=== PATIENT | female | born 1975 | race Caucasian/White ===

== ENCOUNTER 2018-07-03 16:25 | Emergency (ER) | payer SELFPAY ==
[2018-07-03 16:38] VITALS: O2SAT 99
--- NOTE | 2018-07-03 16:54 | ED.PDOC ---
History of Present Illness - General Chief Complaint: Back Pain or Injury Stated Complaint: Low back discomfort, radiates around to flank Time Seen by Provider: 07/03/18 16:48 Source: patient Exam Limitations: no limitations - History of Present Illness Initial Comments: Pop Storm 42 y/o female stated that she had sharp constant bilateral flank for the last 3 days and had one episode of N/V 3 days ago;able to eat 3 meals a day no N/V/D,no constipation ,no dysuria ,no blood in urine ,no fever or chills. Timing/Duration: days - 3, constant Quality/Severity: moderate, sharpness Back Pain Location: lumbar spine Back Pain Radiation: other - both sides of abdomen Method of Injury/Prior Injury: other - NO INJURY Improving Factors: nothing Worsening Factors: nothing Associated Symptoms: other - see hpi Allergies/Adverse Reactions: Allergies Codeine Allergy (Verified 07/03/18 16:38) Other Causes swelling to face and throat Lidocaine Allergy (Verified 07/03/18 16:38) Other Seizure Home Medications: Ambulatory Orders Albuterol Inhaler [Ventolin Hfa Inhaler] 2 puff INH Q4H PRN 07/03/18 Baclofen 20 mg PO BID PRN #10 tab 07/03/18 Review of Systems - Review of Systems Constitutional: States: no symptoms reported EENTM: States: no symptoms reported Respiratory: States: no symptoms reported Cardiology: States: no symptoms reported Gastrointestinal/Abdominal: States: see HPI, other - flank pain Genitourinary: States: no symptoms reported Musculoskeletal: States: no symptoms reported Skin: States: no symptoms reported Neurological: States: no symptoms reported Past Medical History (General) - Patient Medical History Hx Stroke: No Hx Asthma: Yes Hx Congestive Heart Failure: No Hx Diabetes: No Hx Cancer: Yes - carcinoma in situ-CERVIX Surgical History: other - BTL;LEEP - Vaccination History Hx Influenza Vaccination: No Hx Pneumococcal Vaccination: No - Social History Hx Tobacco Use: Yes Hx Alcohol Use: No Hx Substance Use: No Hx Physical Abuse: No Hx Emotional Abuse: No - Female History Patient is a Female of Child Bearing Age (10 -59 yrs old): Yes Hx Last Menstrual Period: 06/16/18 Patient : No Family Medical History - Family History Mother Living Status: Still Living Hx Family Cancer: Yes - Mom - cervical Physical Exam - Physical Exam General Appearance: Alert, Comfortable, No apparent distress Eyes, Ears, Nose, Throat Exam: PERRL/EOMI, normal ENT inspection, pharynx normal, other - sveral teeth missing Neck Exam: non-tender, normal alignment, normal inspection Cardiovascular/Respiratory: regular rate, rhythm, no M/R/G, normal peripheral pulses, no JVD, normal breath sounds Peripheral Pulses: radial,right: 2+, radial,left: 2+ Gastrointestinal/Abdominal: soft, tenderness - right side abdomen;no peritoneal signs;no rebound tenderness Back Exam: normal inspection, no vertebral tenderness, CVA tenderness (R) Extremity Exam: non-tender, no pedal edema Neurologic: alert, oriented x 3 Skin Exam: normal color, warm/dry Progress - Progress Progress: 07/03/18 18:30 Vital Signs - 8 hr 07/03/18 07/03/18 16:33 17:32 Temperature 98.7 F Pulse Rate [ 100 H 83 Left Radial] Respiratory 20 20 Rate Blood Pressure 151/89 137/90 [Left Arm] O2 Sat by Pulse 99 99 Oximetry - Results/Orders Results/Orders: Discuss all test result with patient no acute abnormalities were noted 07/03/18 17:34 Hold Metformin x 48Hrs [id number] Laboratory Results - last 24 hr 07/03/18 07/03/18 07/03/18 16:43 16:43 16:43 WBC RBC Hgb Hct MCV MCH MCHC RDW Plt Count MPV Absolute Neuts (auto) Absolute Lymphs (auto) Absolute Monos (auto) Absolute Eos (auto) Absolute Basos (auto) Neutrophils % Lymphocytes % Monocytes % Eosinophils % Basophils % PT INR PTT (SP) Sodium Potassium Chloride Carbon Dioxide Anion Gap BUN Creatinine BUN/Creatinine Ratio Random Glucose Serum Osmolality Calcium Magnesium Total Bilirubin Direct Bilirubin Indirect Bilirubin AST ALT Alkaline Phosphatase Creatine Kinase CK-MB (CK-2) CK-MB (CK-2) % Troponin I Serum Total Protein Albumin Urine Color Yellow Urine Appearance Clear Urine pH 6.5 Ur Specific [place] <= 1.005 Urine Protein Negative Urine Glucose (UA) Negative Urine Ketones Negative Urine Blood Negative Urine Nitrite Negative Urine Bilirubin Negative Urine Urobilinogen 0.2 Ur Leukocyte Esterase Trace H Urine RBC 0 Urine WBC 0-1 Ur Epithelial Cells 1-3 Urine Bacteria Rare Urine HCG, Qual Negative Urine Opiates Screen Negative Urine Barbiturates Negative Ur Phencyclidine Scrn Negative U Amphetamin/Meth Scrn Negative U Benzodiazepines Scrn Negative U Cocaine Metab Screen Negative U Cannabinoids Screen Positive H 07/03/18 17:17 WBC 12.8 H RBC 4.76 Hgb 15.0 Hct 44.2 MCV 92.8 MCH 31.6 H MCHC 34.1 RDW 13.4 Plt Count 229 MPV 9.1 Absolute Neuts (auto) 8.70 H Absolute Lymphs (auto) 3.10 Absolute Monos (auto) 0.70 Absolute Eos (auto) 0.20 Absolute Basos (auto) 0.10 Neutrophils % 68.0 Lymphocytes % 24.5 Monocytes % 5.7 Eosinophils % 1.2 Basophils % 0.6 PT 10.4 INR 1.04 PTT (SP) 26.3 Sodium 139 Potassium 3.3 L Chloride 104 Carbon Dioxide 23 Anion Gap 15.3 BUN 6 L Creatinine 0.69 BUN/Creatinine Ratio 8.7 L Random Glucose 123 H Serum Osmolality 276.5 Calcium 9.2 Magnesium 2.1 Total Bilirubin 0.6 Direct Bilirubin < 0.1 Indirect Bilirubin 0.5 AST 17 ALT 23 Alkaline Phosphatase 42 Creatine Kinase 172 H CK-MB (CK-2) 1.8 CK-MB (CK-2) % Not Reportable Troponin I < 0.02 Serum Total Protein 8.0 Albumin 4.3 Urine Color Urine Appearance Urine pH Ur Specific [place] Urine Protein Urine Glucose (UA) Urine Ketones Urine Blood Urine Nitrite Urine Bilirubin Urine Urobilinogen Ur Leukocyte Esterase Urine RBC Urine WBC Ur Epithelial Cells Urine Bacteria Urine HCG, Qual Urine Opiates Screen Urine Barbiturates Ur Phencyclidine Scrn U Amphetamin/Meth Scrn U Benzodiazepines Scrn U Cocaine Metab Screen U Cannabinoids Screen - EKG/XRAY/CT CT Ordered: Yes - abd/P-no acute abnormalities Departure - Departure Clinical Impression: Flank pain, acute Time of Disposition: 18:32 Disposition: Discharge to Home or Self Care Departure Forms: ED Discharge - Pt. Copy, Patient Portal Self Enrollment Instructions: DI for Low Back Pain, Muscle Spasms (DC) Referrals: EMMA GUNN [Primary Care Provider] - 1-2 Weeks Prescriptions: Baclofen 20 mg PO BID PRN #10 tab PRN Reason: Muscle Spasms Home Medications: Ambulatory Orders Albuterol Inhaler [Ventolin Hfa Inhaler] 2 puff INH Q4H PRN 07/03/18 Baclofen 20 mg PO BID PRN #10 tab 07/03/18 Additional Instructions: Return to ER as needed;Continue with home medications;Follow up with primary Md 05 Jul 2018 for recheck as needed
[2018-07-03] MEDS ORDERED: LACTATED RINGERS 1,000 ML IVS ONE (16:55)
[2018-07-03] MEDS ORDERED: PROMETHAZINE HCL INJ 25 MG/ML VIAL IM ONE (16:55)
[2018-07-03] MEDS ORDERED: MORPHINE SULFATE INJ 10 MG/ML VIAL IV ONE (16:55)
--- NOTE | 2018-07-03 18:21 | CT ---
EXAM: Abdomen/Pelvis w/Contrast CLINICAL INDICATION: Abdominal pain. COMPARISON: There is no previous study for comparison. TECHNIQUE: The CT scan was done using contiguous axial 5 mm postcontrast sections through the abdomen and pelvis including IV contrast. This exam was performed according to our departmental dose-optimization program, which includes automated exposure control, adjustment of the mA and/or kV according to patient size and/or use of iterative reconstruction technique. FINDINGS: The visualized lung bases are clear. The top of the liver is not included in the field of view and not evaluated. The visualized portion of the liver is unremarkable. The kidneys, adrenal glands, spleen, and pancreas as well as the gallbladder are unremarkable. Evaluation of the upper abdominal structures is limited by respiratory motion artifacts. The aorta is normal in caliber. The appendix is normal. No dilated loops of small bowel are seen. There is no free air, free fluid, or abscess. The urinary bladder appears distended. IMPRESSION: 1. No evidence of an acute intra-abdominal process. 2. Distended urinary bladder. Electronically signed by: Mathew Moreland MD 07/03/2018 6:18 PM [facility]
[2018-07-03] MEDS ORDERED: KETOROLAC TROMETHAMINE INJ 30 MG/ML VIAL IV ONE (18:31)
[2018-07-03] MEDS ORDERED: ORPHENADRINE CITRATE 30 MG/ML AMP IV ONE (18:31)
[2018-07-03] MEDS ORDERED: ORPHENADRINE CITRATE 30 MG/ML AMP IM ONE (18:43)
[2018-07-03] MEDS ORDERED: KETOROLAC TROMETHAMINE INJ 30 MG/ML VIAL IM ONE (18:43)
[2018-07-03 18:54] VITALS: BP 134/93; TEMP 98.9
== END 2018-07-03 18:54 | disposition home or self-care (01) ==
LOC: ER 16:25
DX: R10.9 Unspecified abdominal pain (principal); R11.2 Nausea with vomiting, unspecified; J45.909 Unspecified asthma, uncomplicated; Z85.41 Personal history of malignant neoplasm of cervix uteri; Z87.891 Personal history of nicotine dependence; Z79.899 Other long term (current) drug therapy; Z88.8 Allergy status to other drugs, medicaments and biological substances; Z88.5 Allergy status to narcotic agent
CPT/HCPCS: 36415; 74177; 80048; 80076; 80307; 81001; 81025; 82550; 82553; 84484; 85025; 85610; 85730; J1885; J2270; J2360; J2550; J7120

== ENCOUNTER → 2020-01-20 | Outpatient (CLI) | payer SELFPAY ==
--- NOTE | 2020-01-24 07:08 | CT ---
EXAM DESCRIPTION: Abdomen/Pelvis w/Contrast CLINICAL HISTORY: INGUINAL LYMPHADENOPATHY COMPARISON: July 03, 2018 TECHNIQUE: Postcontrast CT images of the abdomen and pelvis are obtained using standard imaging protocol. This exam was performed according to our departmental dose-optimization program, which includes automated exposure control, adjustment of the mA and/or kV according to patient size and/or use of iterative reconstruction technique . FINDINGS: Visualized lung bases are unremarkable. Liver, spleen, pancreas, adrenal glands, gallbladder, kidneys, ureters, urinary bladder unremarkable. Mild vascular calcifications and noncalcified plaque are seen. The uterus and ovaries are unremarkable. The appendix is retrocecal and normal. Stomach poorly distended but unremarkable. No small bowel obstruction or bowel wall thickening. No pathologically enlarged abdominal mesenteric lymphadenopathy. No retroperitoneal lymphadenopathy in the abdomen. Borderline enlarged right external iliac chain lymph node measures maximum 8 mm short axis. Enlarged soft tissue attenuation mass in the right groin with lobulated appearance measuring 3.5 x 2.5 cm is seen with surrounding fat stranding. No enlarged left inguinal or groin lymphadenopathy. Osseous structures show no aggressive bony lesions. Mild spondylitic changes of the spine are seen. IMPRESSION: Enlarged mass in the right groin with mild surrounding fat stranding likely represents enlarged, reactive lymph node although neoplastic process cannot be determined on CT imaging. Correlate with physical exam findings. Consider tissue sampling or follow-up imaging in 4-6 weeks with ultrasound if not improvement in physical exam findings if this is felt to be reactive. Electronically signed by: Osvaldo Ware MD 01/24/2020 7:06 AM CDT
== END ==
LOC: CT 10:31
PROVIDERS: ATTEND Nurse Practitioner Family
DX: Z01.812 Encounter for preprocedural laboratory examination (principal); R19.09 Other intra-abdominal and pelvic swelling, mass and lump

== ENCOUNTER 2020-02-02 05:23 | Day surgery (SDC) | payer SELFPAY ==
--- NOTE | 2020-01-31 15:58 | RAD ---
EXAM DESCRIPTION: Chest x-ray,2 Views CLINICAL HISTORY: surgery clearance COMPARISON: Previous chest x-ray June 01, 2012 TECHNIQUE: PA/lateral FINDINGS: There is no acute appearing cardiac or pulmonary abnormality. Heart size is normal with normal pulmonary vascularity. No pleural effusion or pneumothorax. Lungs are clear with no consolidating infiltrate. Lateral view shows intact sternum and T-spine. IMPRESSION: No acute process is identified in the chest. Electronically signed by: Devonte Amezcua MD 01/31/2020 3:56 PM CDT
[2020-02-02] MEDS ORDERED: LIDOCAINE 1% 10 ML VIAL INJ ONE (07:00)
[2020-02-02] MEDS ORDERED: PROPOFOL 200 MG/20 ML VIAL IV ONE (07:00)
[2020-02-02] MEDS ORDERED: DEXAMETHASONE INJ 10 MG/ML VIAL ONE (07:00)
[2020-02-02] MEDS ORDERED: MAGNESIUM SULFATE INJ 1 GM/2 ML VIAL ONE (07:00)
[2020-02-02] MEDS ORDERED: ceFAZolin SODIUM 1 GM VIAL ONE (07:00)
[2020-02-02] MEDS ORDERED: SODIUM CHLORIDE 0.9% 50 ML VIAL ONE (07:00)
[2020-02-02] MEDS: LACTATED RINGERS 1,000 ML ONE ×2 (07:57→10:30)
[2020-02-02] MEDS ORDERED: LEVALBUTEROL NEBS 1.25 MG/3 ML VIAL NEB ONE (08:09)
[2020-02-02] MEDS ORDERED: BUPIVACAINE 0.5% W/EPI 30 ML VIAL INJ ONE (08:12)
[2020-02-02] MEDS ORDERED: fentaNYL CITRATE INJ 50 MCG/ML AMP ONE (09:12)
[2020-02-02] MEDS ORDERED: KETAMINE HCL 100 MG/ML VIAL ONE (09:12)
[2020-02-02] MEDS ORDERED: MIDAZOLAM INJ 2 MG/2 ML VIAL ONE (09:12)
[2020-02-02] MEDS ORDERED: HYDROmorphone HCL INJ 2 MG/ML VIAL ONE (10:14)
[2020-02-02] MEDS ORDERED: SODIUM CHLORIDE 0.9% (FLUSH) 10 ML SYG ONE (10:42)
[2020-02-02] MEDS: HYDROmorphone HCL INJ 2 MG/ML VIAL ONE ×5 (10:43→11:23)
--- NOTE | 2020-02-02 10:43 | OP ---
DATE OF PROCEDURE: 02/02/20 PREOPERATIVE DIAGNOSIS: 1. Abnormal external hemorrhoid/mass. 2. Right inguinal lymphadenopathy. POSTOPERATIVE DIAGNOSIS: 1. Anal mass. 2. Right inguinal lymphadenopathy. PROCEDURE: 1. Incisional biopsy of right inguinal lymph node. 2. Incisional biopsy of anal mass/cancer. SURGEON: Anton Bravo MD ANESTHESIA: General and local. FINDINGS: The inguinal node was approximately 3 to 3.5 cm. In taking the biopsy, the inside had white, purulent appearing material, likely from necrotic node with no gross infection. The anal mass showed ulcerative external hemorrhoid appearing tissue, but there was a mass, probably 5 cm, underlying in the perianal area involving the sphincter and up into the distal rectum. Incisional biopsies were performed. Good hemostasis was obtained. INDICATION: As stated. PROCEDURE: General anesthesia was induced. She as prepped and draped in sterile fashion. The clean inguinal site was taken first. Inguinal incision was taken over the palpable mass. Subcutaneous tissues were taken down. We isolated the node. It was very fixed and stuck. I did not want to excise it completely given this. There was some oozing. We did an incisional biopsy of it and got into white purulence. I explored a little further and the inside of the node which was about 4 cm, and the inside was cavitated, filled with fluid, likely necrotic, although not a lot of necrotic tissue, it was just all the fluid. This was aspirated out. Additional tissue was taken to try to get an adequate sample. The wound was then closed with 3 layers of absorbable suture. She was then placed in lithotomy. The lesion in the anus was coming out at about 6 to 7 o'clock. It appeared like an ulcerated external hemorrhoid, but on palpation, the mass went deeper. I examined it to see if there was an abscess, but it was not. This area was solid. We took samples of what looked like visible tumor and also made a cut to get a little bit deeper so we had a good sample. The external skin tag appearing area was now just floppy, so that was removed. There was quite a bit of oozing, but this was controlled with cautery. A lot of local anesthesia was placed in the area. It was then packed and dressing applied. She was then awakened and taken to Recovery to be discharged. #[id number] cc: Eulogio Lou MD MTDD
[2020-02-02 11:05] VITALS: O2SAT 98
[2020-02-02] MEDS ORDERED: HYDROcodone 5MG/APAP 325MG 1 EA TAB ONE (11:49)
[2020-02-02] MEDS ORDERED: HYDROcodone 5MG/APAP 325MG 1 EA TAB PO ONE (11:50)
[2020-02-02 12:45] VITALS: BP 141/96; TEMP 97.5
== END 2020-02-02 12:34 | disposition home or self-care (01) ==
LOC: AMB 05:23
PROVIDERS: ATTEND Surgery
DX: C21.0 Malignant neoplasm of anus, unspecified (principal); C77.4 Secondary and unspecified malignant neoplasm of inguinal and lower limb lymph nodes; K64.4 Residual hemorrhoidal skin tags; E11.9 Type 2 diabetes mellitus without complications; J45.909 Unspecified asthma, uncomplicated; F32.9 Major depressive disorder, single episode, unspecified; E78.00 Pure hypercholesterolemia, unspecified; Z88.3 Allergy status to other anti-infective agents; Z88.5 Allergy status to narcotic agent
CPT/HCPCS: 00902; 36415; 38531; 46220; 46999; 71046; 80048; 85025; 87070; 87205; A4216; J0690; J1100; J1170; J2250; J3010; J3475; J3490; J7120; J7614

== ENCOUNTER 2020-03-10 15:45 | Emergency (ER) | payer SELFPAY ==
[2020-03-10] MEDS ORDERED: ONDANSETRON INJ 4 MG/2 ML VIAL IV ONE (16:17)
[2020-03-10] MEDS ORDERED: SODIUM CHLORIDE 0.9% 1000ML 1,000 ML IVS PRN (16:17)
[2020-03-10] MEDS ORDERED: SODIUM CHLORIDE 0.9% (FLUSH) 10 ML SYG IV PRN (16:17)
[2020-03-10] MEDS ORDERED: MORPHINE SULFATE INJ 10 MG/ML VIAL IV ONE (16:18)
--- NOTE | 2020-03-10 16:56 | ED.PDOC ---
History of Present Illness - General Chief Complaint: General Stated Complaint: Nausea/vomiting Time Seen by Provider: 03/10/20 16:13 Source: patient, RN notes reviewed, Vital Signs reviewed, old records - History of Present Illness Initial Comments: This is a 44-year-old female with history of rectal cancer presenting to the emergency department with nausea and vomiting that began yesterday after she underwent a radiation treatment and started chemotherapy with fluorouracil. She took p.o. Phenergan earlier today, but was unable to keep it down. Dr. Mcginnis is her oncologist in [place]. She reports some diarrhea with mild bloody stool, but this has been a longstanding problem and is unchanged. She denies any fevers, cough, shortness of breath, or severe abdominal pain. She does report a mild headache at this time. No weakness/numbness/tingling. She called Dr. Mcginnis and notified him of her symptoms, and was told to come into the emergency department for IV fluids, antiemetics and work-up. Allergies/Adverse Reactions: Allergies Codeine Allergy (Verified 07/03/18 16:38) Other Causes swelling to face and throat Home Medications: Ambulatory Orders Calcium Carbonate-Mag Hydrox [Rolaids 550-110 mg] 1 chw PO PRN PRN 01/31/20 Naproxen Sodium [Aleve] 220 mg PO BID PRN 01/31/20 Ondansetron Odt (ER Disp) [Zofran ODT (ER DISP)] 8 mg PO ONCE #2 tab 03/10/20 Ondansetron Odt (ER Disp) [Zofran ODT (ER DISP)] 8 mg PO ONCE #4 tab 03/10/20 Ondansetron Odt (ER Disp) [Zofran ODT (ER DISP)] 32 mg PO ONCE #4 tab 03/10/20 Ondansetron Odt (ER Disp) [Zofran ODT (ER DISP)] 32 mg PO ONCE 1 Days tab 03/10/20 Ondansetron Odt [Zofran ODT] 8 mg PO Q8HR PRN #20 tab 03/10/20 Review of Systems - Review of Systems Constitutional: Denies: chills, fever EENTM: Denies: ear pain, nose congestion, throat pain Respiratory: Denies: cough, short of breath, wheezing Cardiology: Denies: chest pain, edema, syncope Gastrointestinal/Abdominal: States: diarrhea, nausea, vomiting. Denies: abdominal pain Genitourinary: Denies: dysuria, frequency, hematuria, pain Musculoskeletal: Denies: back pain, joint pain, muscle pain, neck pain Skin: Denies: lesions, rash Neurological: States: headache. Denies: numbness, paresthesia, tingling, weakness Endocrine: States: no symptoms reported Hematologic/Lymphatic: States: no symptoms reported Past Medical History (General) - Patient Medical History Hx Stroke: No Hx Asthma: Yes Hx Congestive Heart Failure: No Hx Diabetes: No Hx Cancer: Yes - carcinoma in situ-CERVIX Hx MRSA: No - Vaccination History Hx Influenza Vaccination: No Hx Pneumococcal Vaccination: No - Social History Hx Tobacco Use: Yes Hx Alcohol Use: No Hx Substance Use: No Hx Physical Abuse: No Hx Emotional Abuse: No - Female History Hx Last Menstrual Period: 06/16/18 Patient : No Family Medical History - Family History Mother Living Status: Still Living Hx Family Cancer: Yes - Mom - cervical Physical Exam - Physical Exam General Appearance: Alert, Ill Appearing Ears, Nose, Throat: hearing grossly normal, normal ENT inspection, normal pharynx, other - Poor dentition Neck: non-tender, supple Respiratory: chest non-tender, lungs clear, normal breath sounds, no respiratory distress Cardiovascular/Chest: normal peripheral pulses, regular rate, rhythm, no edema, no gallop, no JVD Gastrointestinal/Abdominal: non tender, soft, no organomegaly Back Exam: normal inspection, no CVA tenderness, no vertebral tenderness Extremity: non-tender, normal inspection, no pedal edema, no calf tenderness, other - Good distal pulses, There is a PICC line in the right upper extremity, site clean and dry Neurologic: no motor/sensory deficits, alert, normal mood/affect, oriented x 3 Skin Exam: normal color, warm/dry Progress - Progress Progress: 03/10/20 18:10 Rechecked. Nausea improving, but not completely resolved. Will order Phenergan. Headache resolved. Patient states she is feeling much better and would like to go home if possible. I discussed plan to review labs with oncology prior to discharge. 03/10/20 18:[address] Alegria, oncologist on-call for Dr. Mcginnis. Reviewed labs, vital signs. Agrees with plan for discharge home with antiemetics. Recommended dexamethasone 10 mg IV prior to discharge. Recommended follow-up with Dr. Mcginnis in clinic later this week. 03/10/20 19:40 Rechecked. Patient feeling much better after IV dexamethasone and Phenergan. She is tolerating p.o. She feels much better and wants to go home. Strict warnings given to return to the emergency room for worsening nausea/vomiting, fever, vomiting blood, changes in mental status, or any other concerns. Recommended follow-up with her oncologist next week. DDx: Chemo related nausea/vomiting, dehydration, electrolyte abnormality, pancreatitis MDM: Patient presenting with nausea/vomiting after initiating chemotherapy for stage III anal cancer. Patient on 5-FU. She was given IV Zofran and Phenergan as well as 2 L of normal saline in the emergency department with marked improvement of her symptoms. She was able to tolerate p.o. liquids and Jell-O prior to discharge. Her labs showed mild hypokalemia, I anticipate this will correct if she is able to eat or drink. I do not feel it needs repletion at this time. I discussed the case with her oncologist who agreed with plan for discharge home. She was given IV dexamethasone prior to discharge. Strict warnings given to return to the emergency room for worsening pain, intractable vomiting, changes in mental status, fever, vomiting blood, or any other concerns Nicola Diaz DO [facility] #[id number] - Results/Orders Results/Orders: EKG reviewed personally by me at 1646. Sinus tachycardia, rate of 103, normal axis, normal intervals, no ST segment elevations or depressions. 03/10/20 16:17 IV Care:Saline Lock per Protoc QSHIFT Sodium Chloride 0.9% (Flush) [Saline Flush Syringe] 10 ml IV PRN PRN Sodium Chloride 0.9% 1000ML [Ns 1000 ml] 1,000 ml IVS .QD 03/10/20 16:30 EKG STAT Laboratory Results - last 24 hr 03/10/20 03/10/20 03/10/20 16:36 16:36 16:36 WBC 12.5 H RBC 4.98 Hgb 16.1 H Hct 45.3 MCV 91.0 MCH 32.3 H MCHC 35.4 RDW 12.5 Plt Count 234 MPV 8.5 Absolute Neuts (auto) 10.30 H Absolute Lymphs (auto) 1.40 Absolute Monos (auto) 0.70 Absolute Eos (auto) 0.00 Absolute Basos (auto) 0.10 Neutrophils % 82.4 H Lymphocytes % 11.1 L Monocytes % 5.4 Eosinophils % 0.2 L Basophils % 0.9 Sodium 134 L Potassium 3.3 L Chloride 95 L Carbon Dioxide 24 Anion Gap 18.3 H BUN 11 Creatinine 0.76 BUN/Creatinine Ratio 14.5 Random Glucose 114 H Serum Osmolality 268.5 L Calcium 9.7 Phosphorus Magnesium Total Bilirubin 1.1 H Direct Bilirubin 0.1 Indirect Bilirubin 1.0 H AST 12 ALT 18 Alkaline Phosphatase 38 L Serum Total Protein 8.0 Albumin 4.4 Lipase 26 Serum HCG, Qual Negative Urine Color Urine Appearance Urine pH Ur Specific [place] Urine Protein Urine Glucose (UA) Urine Ketones Urine Blood Urine Nitrite Urine Bilirubin Urine Urobilinogen Ur Leukocyte Esterase Urine RBC Urine WBC Ur Epithelial Cells Urine Bacteria 03/10/20 03/10/20 16:36 17:04 WBC RBC Hgb Hct MCV MCH MCHC RDW Plt Count MPV Absolute Neuts (auto) Absolute Lymphs (auto) Absolute Monos (auto) Absolute Eos (auto) Absolute Basos (auto) Neutrophils % Lymphocytes % Monocytes % Eosinophils % Basophils % Sodium Potassium Chloride Carbon Dioxide Anion Gap BUN Creatinine BUN/Creatinine Ratio Random Glucose Serum Osmolality Calcium Phosphorus 3.5 Magnesium 2.0 Total Bilirubin Direct Bilirubin Indirect Bilirubin AST ALT Alkaline Phosphatase Serum Total Protein Albumin Lipase Serum HCG, Qual Urine Color Yellow Urine Appearance Clear Urine pH 6.5 Ur Specific [place] 1.010 Urine Protein Negative Urine Glucose (UA) Negative Urine Ketones 40 H Urine Blood Trace-intact H Urine Nitrite Negative Urine Bilirubin Negative Urine Urobilinogen 1.0 Ur Leukocyte Esterase Negative Urine RBC 0-1 Urine WBC 0 Ur Epithelial Cells 3-5 Urine Bacteria Rare Departure - Departure Clinical Impression: Anal cancer Nausea & vomiting Qualifiers: Vomiting type: unspecified Vomiting Intractability: non-intractable Qualified Code(s): R11.2 - Nausea with vomiting, unspecified Disposition: Discharge to Home or Self Care Condition: Good Departure Forms: ED Discharge - Pt. Copy, Patient Portal Self Enrollment Diet: full liquid diet, bland diet Referrals: EMMA GUNN [Primary Care Provider] - 1-5 Days KEM MCGINNIS [Referring] - 1-5 Days Prescriptions: Ondansetron Odt [Zofran ODT] 8 mg PO Q8HR PRN #20 tab PRN Reason: Nausea Ondansetron Odt (ER Disp) [Zofran ODT (ER DISP)] 8 mg PO ONCE #2 tab Ondansetron Odt (ER Disp) [Zofran ODT (ER DISP)] 32 mg PO ONCE 1 Days tab Ondansetron Odt (ER Disp) [Zofran ODT (ER DISP)] 32 mg PO ONCE #4 tab Ondansetron Odt (ER Disp) [Zofran ODT (ER DISP)] 8 mg PO ONCE #4 tab Home Medications: Ambulatory Orders Calcium Carbonate-Mag Hydrox [Rolaids 550-110 mg] 1 chw PO PRN PRN 01/31/20 Naproxen Sodium [Aleve] 220 mg PO BID PRN 01/31/20 Ondansetron Odt (ER Disp) [Zofran ODT (ER DISP)] 8 mg PO ONCE #2 tab 03/10/20 Ondansetron Odt (ER Disp) [Zofran ODT (ER DISP)] 8 mg PO ONCE #4 tab 03/10/20 Ondansetron Odt (ER Disp) [Zofran ODT (ER DISP)] 32 mg PO ONCE #4 tab 03/10/20 Ondansetron Odt (ER Disp) [Zofran ODT (ER DISP)] 32 mg PO ONCE 1 Days tab 03/10/20 Ondansetron Odt [Zofran ODT] 8 mg PO Q8HR PRN #20 tab 03/10/20
[2020-03-10] MEDS ORDERED: PROMETHAZINE HCL INJ 12.5 MG in SODIUM CHLORIDE 0.9% 50ML 50 ML IVPB ONE (18:15)
[2020-03-10] MEDS ORDERED: SODIUM CHLORIDE 0.9% 1000ML 1,000 ML IVS ONE (18:15)
[2020-03-10] MEDS ORDERED: DEXAMETHASONE INJ 10 MG/ML VIAL IV ONE (18:19)
[2020-03-10] MEDS ORDERED: HEPARIN SODIUM 100 U/ML 5 ML SYG IV ONE (20:20)
[2020-03-10] MEDS ORDERED: ONDANSETRON ODT (ER DISP) 8 MG TAB PO ONE (20:25)
[2020-03-10 21:45] VITALS: BP 122/80; TEMP 97.6; O2SAT 97
== END 2020-03-10 20:38 | disposition home or self-care (01) ==
LOC: ER 15:45
DX: R11.2 Nausea with vomiting, unspecified (principal); C21.0 Malignant neoplasm of anus, unspecified; Z79.899 Other long term (current) drug therapy; Z88.5 Allergy status to narcotic agent; Z85.41 Personal history of malignant neoplasm of cervix uteri; Z87.891 Personal history of nicotine dependence
CPT/HCPCS: 36415; 80048; 80076; 81001; 83690; 83735; 84100; 84703; 85025; 93005; A4216; J1100; J1642; J2270; J2405; J2550; J7030

== ENCOUNTER → 2020-03-20 | Outpatient (CLI) | payer SELFPAY ==
--- NOTE | 2020-03-20 15:03 | US ---
EXAM DESCRIPTION: Venous,Upper Extremity RT: ULTRASOUND. CLINICAL HISTORY: PAIN AND SWELLING. Patient undergoing chemotherapy. COMPARISON: None Available. TECHNIQUE: Two -dimensional and doppler sonographic evaluation of the deep venous system of the right upper extremity. FINDINGS: Doppler evaluation shows decreased venous waveform and color flow in the right axillary vein, right basilic vein and a superficial vein in the medial forearm. No phasic flow. On grayscale evaluation, echogenic clot seen within the venous lumens and the veins are not compressible with transducer. Normal color flow and normal phasicity and augmentation of the right subclavian, internal jugular, brachial, radial vein and ulnar veins. These right upper extremity deep veins showed normal occlusion with transducer pressure. Two-dimensional survey showed no echogenic thrombus within these veins. IMPRESSION: Duplex ultrasound evaluation of the right upper extremity deep venous system showing thrombosis in the right axillary vein, right basilic vein, and a superficial vein in the medial right forearm. Other veins of the right upper extremity deep venous system are patent and normal. The straight knife machine cutter notified the referring physician by telephone. The patient will be transported by powder truck driver to the physician's office. Electronically signed by: Darryl Duncan MD 03/20/2020 3:02 PM [facility]
== END ==
LOC: RAD 13:18
PROVIDERS: ATTEND Internal Medicine Medical Oncology
DX: I82.621 Acute embolism and thrombosis of deep veins of right upper extremity (principal); I82.611 Acute embolism and thrombosis of superficial veins of right upper extremity; M79.89 Other specified soft tissue disorders